=== PATIENT | male | born 1980 | race Hispanic/Latino ===

== ENCOUNTER 2017-04-15 14:46 | Emergency (ER) | payer OTHER ==
[~2017-04-15 14:46] MED LIST: LEVO500T2 PO
[2017-04-15] MEDS ORDERED: HYDROCODONE/ACETAMINOPHEN 10/325 MG TAB ONE (15:14)
[2017-04-15] MEDS ORDERED: DEXAMETHASONE SOD PHOSPHATE 10MG/ML 1ML VIAL ONE (15:18)
[2017-04-15] MEDS ORDERED: KETOROLAC TROMETHAMINE 60 MG/2 ML VIAL ONE (15:18)
== END 2017-04-15 15:37 | disposition home or self-care (01) ==
LOC: EDH 14:46
DX: M10.9 Gout, unspecified (principal)
CPT/HCPCS: 96372 ×2; 99284; J1100; J1885

== ENCOUNTER 2018-05-05 21:52 | Emergency (ER) | payer OTHER ==
[2018-05-05] MEDS ORDERED: DEXAMETHASONE SOD PHOSPHATE 10MG/ML 1ML VIAL ONE (22:05)
[2018-05-05] MEDS ORDERED: GUAIFENESIN-DM 200/20 MG 10 ML ONE (22:07)
[2018-05-05] MEDS ORDERED: BENZONATATE 100 MG CAPSULE PO ONE (22:08)
[2018-05-05] MEDS ORDERED: IBUPROFEN 400 MG TABLET ONE (22:08)
[2018-05-05] MEDS ORDERED: IPRATROPIUM/ALBUTEROL SULFATE 3 ML SOLUTION IH ONE (22:11)
== END 2018-05-06 00:45 | disposition home or self-care (01) ==
LOC: EDH 21:52
DX: J20.9 Acute bronchitis, unspecified (principal); J11.1 Influenza due to unidentified influenza virus with other respiratory manifestations
CPT/HCPCS: 71046; 87804 ×2; 94640; 96372; 99284; J1100

== ENCOUNTER 2019-12-09 06:11 | Emergency (ER) | payer OTHER ==
[2019-12-09] MEDS ORDERED: ACETAMINOPHEN EXTRA STRENGTH 500 MG TABLET ONE (07:07)
[2019-12-09 07:17] LABS: BASOPHILS % (AUTO) 0.3 % (0.0-5.0); EOSINOPHILS % (AUTO) 0.1 % (0.0-8.0); HEMATOCRIT 41.6 % (42-54); LYMPHOCYTES % (AUTO) 5.6 % (21.0-51.0); MEAN CORPUSCULAR HEMOGLOBIN 29.7 pg (27.0-33.0); MEAN CORPUSCULAR HGB CONC 32.9 g/dL (32.0-36.0); MONOCYTES % (AUTO) 5.6 % (3.0-13.0); NEUTROPHILS % (AUTO) 87.8 % (40.0-77.0); PLATELET COUNT (AUTO) 231 K/uL (130-400); RED BLOOD CELL COUNT(AUTO) 4.62 MIL/uL (4.50-6.20); RED CELL DISTRIBUTION WIDTH 13.7 % (11.0-15.5); WHITE BLOOD COUNT (AUTO) 22.3 K/uL (4.8-10.8)
[2019-12-09 07:27] LABS: APPEARANCE,URINE SL CLOUDY (CLEAR); BILIRUBIN,URINE SMALL (NEGATIVE); COLOR,URINE YELLOW (YELLOW); GLUCOSE, URINE (UA) NEGATIVE (NEGATIVE); KETONES,URINE NEGATIVE (NEGATIVE); LEUKOCYTE ESTERASE ,URINE SMALL (NEGATIVE); NITRATE,URINE POSITIVE (NEGATIVE); OCCULT BLOOD,URINE MODERATE (NEGATIVE); PH,URINE 6.5 (5.0-8.0); PROTEIN,URINE TRACE mg/dL (NEGATIVE)
[2019-12-09 07:32] LABS: ALBUMIN 3.2 g/dL (3.5-5.0); BILIRUBIN,TOTAL 1.3 mg/dL (0.2-1.0); POTASSIUM 4.1 mmol/L (3.5-5.1); TOTAL PROTEIN, SERUM 7.7 g/dL (6.0-8.3)
[2019-12-09 07:57] LABS: BACTERIA,URINE Rare /HPF (None Seen); SQUAMOUS EPITHELIAL CELL,UR Rare /HPF (0-2); WBC,URINE 26-50 /HPF (0-1)
[2019-12-09] MEDS ORDERED: CEFTRIAXONE SODIUM 2 GM VIAL ONE (08:13)
[2019-12-09] MEDS ORDERED: SODIUM CHLORIDE 0.9% 100 ML IV ONE (08:16)
== END 2019-12-09 11:31 | disposition home or self-care (01) ==
LOC: EDH 06:11
DX: N10 Acute pyelonephritis (principal); Z20.828 Contact with and (suspected) exposure to other viral communicable diseases; M10.9 Gout, unspecified
CPT/HCPCS: 36415; 71045; 74176; 80053; 81001; 83605; 84484; 85025; 87040; 87077; 87088; 87186; 87426; 87804 ×2; 93005; 96361; 96374; 99285; J0696; U0003

== ENCOUNTER 2020-11-26 07:09 | Emergency (ER) | payer BC, OTHER ==
[~2020-11-26] VITALS: Ht 180.3 cm; Wt 172.4 kg
[2020-11-26 07:34] LABS: BASOPHILS % (AUTO) 0.4 % (0.0-5.0); EOSINOPHILS % (AUTO) 1.8 % (0.0-8.0); HEMATOCRIT 43.7 % (42-54); LYMPHOCYTES % (AUTO) 20.7 % (21.0-51.0); MEAN CORPUSCULAR HEMOGLOBIN 30.5 pg (27.0-33.0); MEAN CORPUSCULAR HGB CONC 33.9 g/dL (32.0-36.0); MEAN CORPUSCULAR VOLUME 89.9 fL (79-99); NEUTROPHILS % (AUTO) 69.8 % (40.0-77.0); PLATELET COUNT (AUTO) 280 K/uL (130-400); RED BLOOD CELL COUNT(AUTO) 4.86 MIL/uL (4.50-6.20); RED CELL DISTRIBUTION WIDTH 13.5 % (11.0-15.5); WHITE BLOOD COUNT (AUTO) 10.8 K/uL (4.8-10.8)
[2020-11-26 07:47] LABS: ALBUMIN 3.5 g/dL (3.5-5.0); BILIRUBIN,TOTAL 0.3 mg/dL (0.2-1.0); MAGNESIUM 1.8 mg/dL (1.80-2.40); TOTAL PROTEIN, SERUM 7.6 g/dL (6.0-8.3)
[2020-11-26 07:51] LABS: B-TYPE NATRIURETIC PEPTIDE 20 pg/mL (0-100)
[2020-11-26 07:58] LABS: AMPHET/METH SCREEN,URINE NEGATIVE (NEGATIVE); BARBITURATE SCREEN, URINE NEGATIVE (NEGATIVE); BENZODIAZEPINES SCREEN,URINE NEGATIVE (NEGATIVE); CANNABINOID SCREEN,URINE NEGATIVE (NEGATIVE); COCAINE SCREEN,URINE NEGATIVE (NEGATIVE); OPIATE SCREEN,URINE NEGATIVE (NEGATIVE); PHENCYCLIDINE SCREEN,URINE NEGATIVE (NEGATIVE)
[2020-11-26] MEDS ORDERED: KETOROLAC 30MG VIAL (30MG/ML) IV ONE (09:30)
[2020-11-26] MEDS ORDERED: ACETAMINOPHEN 500 MG TABLET PO ONE (09:30)
[2020-11-26] MEDS ORDERED: PRED20TA3 PO (10:12)
[2020-11-26] MEDS ORDERED: INDO-15 PO (10:12)
[2020-11-26 11:01] VITALS: BP 118/78
== END 2020-11-26 11:10 | disposition home or self-care (01) ==
LOC: EDH 07:09
DX: R07.89 Other chest pain (principal); M10.9 Gout, unspecified; M25.561 Pain in right knee; E66.01 Morbid (severe) obesity due to excess calories; Z68.43 Body mass index [BMI] 50.0-59.9, adult; Z79.1 Long term (current) use of non-steroidal anti-inflammatories (NSAID)
CPT/HCPCS: 36415; 71045; 80053; 80305; 82550; 83735; 83880; 84484 ×2; 84550; 85025; 93005 ×3; 93971; 96374; 99284; J1885; 96372

== ENCOUNTER 2021-11-21 08:09 | Emergency (ER) | payer BC ==
[~2021-11-21] VITALS: Ht 180.3 cm; Wt 167.8 kg
[~2021-11-21 08:09] MED LIST changes: +INDO-15 PO; +PRED20TA3 PO
[2021-11-21] MEDS ORDERED: ACETAMINOPHEN 500 MG TABLET PO ONE (08:30)
[2021-11-21] MEDS ORDERED: IPRATROPIUM/ALBUTEROL SULFATE 3 ML SOLUTION IH ONE (08:30)
[2021-11-21 08:33] LABS: BASOPHILS % (AUTO) 0.4 % (0.0-5.0); HEMATOCRIT 42.6 % (42-54); LYMPHOCYTES % (AUTO) 5.8 % (21.0-51.0); MEAN CORPUSCULAR HEMOGLOBIN 30.1 pg (27.0-33.0); MEAN CORPUSCULAR HGB CONC 33.3 g/dL (32.0-36.0); MEAN CORPUSCULAR VOLUME 90.3 fL (79-99); MONOCYTES % (AUTO) 5.3 % (3.0-13.0); NEUTROPHILS % (AUTO) 87.2 % (40.0-77.0); PLATELET COUNT (AUTO) 230 K/uL (130-400); RED BLOOD CELL COUNT(AUTO) 4.72 MIL/uL (4.50-6.20); RED CELL DISTRIBUTION WIDTH 13.5 % (11.0-15.5); WHITE BLOOD COUNT (AUTO) 9.4 K/uL (4.8-10.8)
[2021-11-21 08:57] LABS: POTASSIUM 4.1 mmol/L (3.5-5.1)
[2021-11-21 09:00] LABS: ALBUMIN 3.5 g/dL (3.5-5.0); MAGNESIUM 1.6 mg/dL (1.80-2.40); TOTAL PROTEIN, SERUM 7.6 g/dL (6.0-8.3)
[2021-11-21] MEDS ORDERED: SOLU-MEDROL 125MG VIAL IVP ONE (09:00)
[2021-11-21 09:22] LABS: B-TYPE NATRIURETIC PEPTIDE 46 pg/mL (0-100)
[2021-11-21 09:28] LABS: APPEARANCE,URINE CLEAR (CLEAR); BILIRUBIN,URINE NEGATIVE (NEGATIVE); COLOR,URINE LIGHT-YELLOW (YELLOW); GLUCOSE, URINE (UA) NEGATIVE (NEGATIVE); KETONES,URINE NEGATIVE (NEGATIVE); LEUKOCYTE ESTERASE ,URINE NEGATIVE Leu/uL (NEGATIVE); NITRATE,URINE NEGATIVE (NEGATIVE); OCCULT BLOOD,URINE NEGATIVE (NEGATIVE); PH,URINE 7.5 (5.0-8.0); PROTEIN,URINE NEGATIVE (NEGATIVE); UROBILINOGEN,URINE 0.2 mg/dL (0.2-1.0)
[2021-11-21] MEDS ORDERED: HYDROXYZINE 25 MG TABLET PO ONE (10:30)
[2021-11-21] MEDS ORDERED: MAGNESIUM OXIDE 400 MG TABLET PO ONE (10:36)
[2021-11-21 10:50] VITALS: BP 111/66
[2021-11-21] MEDS ORDERED: OSELTAMIVIR PHOSPHATE 75 MG CAP PO SCH (11:00)
[2021-11-21] MEDS ORDERED: MAGNESIUM OXIDE 400 MG TABLET PO SCH (11:00)
[2021-11-21] MEDS ORDERED: CEFTRIAXONE 1G VIAL ONE (11:22)
[2021-11-21] MEDS ORDERED: AMOX-426 PO (11:30)
[2021-11-21] MEDS ORDERED: OSEL75 PO (11:30)
[2021-11-21] MEDS ORDERED: PRED20TA3 PO (11:30)
[2021-11-21] MEDS ORDERED: CEFTRIAXONE 1G VIAL IVP ONE (11:30)
[2021-11-21] MEDS ORDERED: ALBU8.5H8 IH (11:30)
[2021-11-21] MEDS ORDERED: BENZ-39 PO (11:30)
== END 2021-11-21 11:47 | disposition home or self-care (01) ==
LOC: EDH 08:09
DX: J10.00 Influenza due to other identified influenza virus with unspecified type of pneumonia (principal); J98.01 Acute bronchospasm; E83.42 Hypomagnesemia; E66.01 Morbid (severe) obesity due to excess calories; Z68.43 Body mass index [BMI] 50.0-59.9, adult; Z20.822 Contact with and (suspected) exposure to COVID-19; M10.9 Gout, unspecified; Z79.899 Other long term (current) drug therapy
CPT/HCPCS: 99284; 96374; 71045; 87635; 96375; 82550; 83735; 84484; 80053; 83880; 85025; 87040 ×2; 87804 ×2; 83605; 81003; 36415; 93005; 94640; C9803; J2930; J0696

== ENCOUNTER 2022-08-21 02:22 | Emergency (ER) | payer BC ==
[~2022-08-21] VITALS: Ht 180.3 cm; Wt 184.6 kg
[~2022-08-21 02:22] MED LIST changes: +ALBU8.5H8 IH; +AMOX-426 PO; +BENZ-39 PO; +OSEL75 PO
[2022-08-21 02:24] VITALS: BP 147/87
[2022-08-21] MEDS ORDERED: COLC0.6C3 PO (03:27)
[2022-08-21] MEDS ORDERED: INDO50CA97 PO (03:27)
[2022-08-21] MEDS ORDERED: SOLU-MEDROL 125MG VIAL IM ONE (04:00)
[2022-08-21] MEDS ORDERED: KETOROLAC 30MG VIAL (30MG/ML) IM ONE (04:00)
== END 2022-08-21 03:46 | disposition home or self-care (01) ==
LOC: EDH 02:22
DX: M10.9 Gout, unspecified (principal); Z79.52 Long term (current) use of systemic steroids
CPT/HCPCS: 99284; 73610; 96372 ×2; J2930; J1885

== ENCOUNTER 2023-03-27 00:57 | Emergency (ER) | payer BC ==
[~2023-03-27] VITALS: Ht 180.3 cm; Wt 182.8 kg
[~2023-03-27 00:57] MED LIST changes: +COLC0.6C3 PO; +INDO50CA97 PO
[2023-03-27] MEDS ORDERED: KETOROLAC 30MG VIAL (30MG/ML) IV ONE (01:30)
[2023-03-27] MEDS ORDERED: GABAPENTIN 300 MG CAPSULE PO SCH (01:30)
[2023-03-27 01:33] LABS: BASOPHILS # (AUTO) 0.04 K/uL (0.00-0.20); BASOPHILS % (AUTO) 0.4 % (0.0-5.0); EOSINOPHILS # (AUTO) 0.34 K/uL (0.00-0.70); EOSINOPHILS % (AUTO) 3.5 % (0.0-8.0); HEMATOCRIT 40.2 % (42-54); IMMATURE GRANULOCYTE ABSOLUTE 0.02 K/uL (0-1); LYMPHOCYTES # (AUTO) 2.9 K/uL (1.0-4.8); LYMPHOCYTES % (AUTO) 29.9 % (21.0-51.0); MEAN CORPUSCULAR HEMOGLOBIN 30.8 pg (27.0-33.0); MEAN CORPUSCULAR HGB CONC 34.6 g/dL (32.0-36.0); MEAN CORPUSCULAR VOLUME 89.1 fL (79-99); MONOCYTES # (AUTO) 0.7 K/uL (0.1-1.0); MONOCYTES % (AUTO) 6.7 % (3.0-13.0); NEUTROPHILS # (AUTO) 5.7 K/uL (1.8-7.7); NEUTROPHILS % (AUTO) 59.3 % (40.0-77.0); PLATELET COUNT (AUTO) 250 K/uL (130-400); RED BLOOD CELL COUNT(AUTO) 4.51 MIL/uL (4.50-6.20); RED CELL DISTRIBUTION WIDTH 13.2 % (11.0-15.5); WHITE BLOOD COUNT (AUTO) 9.7 K/uL (4.8-10.8)
[2023-03-27 01:47] LABS: ALBUMIN 3.1 g/dL (3.5-5.0); BILIRUBIN,TOTAL 0.2 mg/dL (0.2-1.0); TOTAL PROTEIN, SERUM 6.8 g/dL (6.0-8.3)
[2023-03-27 02:18] LABS: B-TYPE NATRIURETIC PEPTIDE 27 pg/mL (0-100)
[2023-03-27] MEDS ORDERED: IOHEXOL 350 MG/ML 100ML INFUS..BTL IV ONE (03:29)
[2023-03-27 04:58] VITALS: BP 138/70; PULSE 90; RESP 18
[2023-03-27] MEDS ORDERED: GABA300C PO (05:46)
[2023-03-27] MEDS ORDERED: IBUP-1493 PO (05:46)
== END 2023-03-27 06:01 | disposition home or self-care (01) ==
LOC: EDH 00:57
DX: R07.89 Other chest pain (principal)
CPT/HCPCS: 99284; 96374; 71270; 71045; 84484 ×2; 80053; 83880; 85025; 85378; 36415; 93005; J1885; Q9967

== ENCOUNTER 2023-06-02 23:40 | Emergency (ER) | payer BC ==
[~2023-06-02] VITALS: Ht 180.3 cm; Wt 181.9 kg
[~2023-06-02 23:40] MED LIST changes: -ALBU8.5H8 IH; -AMOX-426 PO; -BENZ-39 PO; -COLC0.6C3 PO; +GABA300C PO; +IBUP-1493 PO; -INDO-15 PO; -INDO50CA97 PO; -LEVO500T2 PO; -OSEL75 PO
[2023-06-03 00:37] LABS: CREATININE 0.9 mg/dL (0.5-1.3); POTASSIUM 4.2 mmol/L (3.5-5.1)
[2023-06-03 00:38] LABS: B-TYPE NATRIURETIC PEPTIDE 34 pg/mL (0-100)
[2023-06-03 00:39] LABS: BASOPHILS # (AUTO) 0.06 K/uL (0.00-0.20); BASOPHILS % (AUTO) 0.5 % (0.0-5.0); EOSINOPHILS # (AUTO) 0.26 K/uL (0.00-0.70); EOSINOPHILS % (AUTO) 2.3 % (0.0-8.0); HEMATOCRIT 43.8 % (42-54); IMMATURE GRANULOCYTE ABSOLUTE 0.03 K/uL (0-1); LYMPHOCYTES % (AUTO) 26.1 % (21.0-51.0); MEAN CORPUSCULAR HEMOGLOBIN 30.8 pg (27.0-33.0); MEAN CORPUSCULAR HGB CONC 33.6 g/dL (32.0-36.0); MEAN CORPUSCULAR VOLUME 91.6 fL (79-99); MONOCYTES # (AUTO) 0.7 K/uL (0.1-1.0); MONOCYTES % (AUTO) 6.5 % (3.0-13.0); NEUTROPHILS # (AUTO) 7.3 K/uL (1.8-7.7); NEUTROPHILS % (AUTO) 64.3 % (40.0-77.0); PLATELET COUNT (AUTO) 255 K/uL (130-400); RED BLOOD CELL COUNT(AUTO) 4.78 MIL/uL (4.50-6.20); RED CELL DISTRIBUTION WIDTH 13.2 % (11.0-15.5); WHITE BLOOD COUNT (AUTO) 11.4 K/uL (4.8-10.8)
[2023-06-03 00:41] LABS: SARS-CoV-2, RNA, NAAT NEGATIVE SARS CoV-2 (NEGATIVE)
[2023-06-03 00:43] LABS: INFLUENZA TYPE A Negative For Type A (NEGATIVE); INFLUENZA TYPE B Negative For Type B (NEGATIVE)
[2023-06-03] MEDS: ONDANSETRON 4MG INJ IVP ONE (00:44)
[2023-06-03] MEDS: NITROGLYCERIN 1GM OINT 1 INCH/1GM TD ONE (00:44)
[2023-06-03] MEDS: ASPIRIN 325MG TAB PO ONE (00:44)
[2023-06-03 00:49] LABS: ALBUMIN 3.4 g/dL (3.5-5.0); BILIRUBIN,TOTAL 0.2 mg/dL (0.2-1.0); THYROID STIMULATING HORMONE 1.94 uIU/mL (0.36-3.74); TOTAL PROTEIN, SERUM 7.1 g/dL (6.0-8.3)
[2023-06-03] MEDS ORDERED: IOHEXOL 350 MG/ML 100ML INFUS..BTL IV ONE (01:10)
[2023-06-03] MEDS: ONDANSETRON 4MG INJ ONE (01:35)
[2023-06-03 05:44] VITALS: BP 143/66; PULSE 64; RESP 18; O2SAT 99
== END 2023-06-03 05:42 | disposition home or self-care (01) ==
LOC: EDH 23:40
DX: R07.89 Other chest pain (principal); E66.01 Morbid (severe) obesity due to excess calories; Z20.822 Contact with and (suspected) exposure to COVID-19; Z68.43 Body mass index [BMI] 50.0-59.9, adult; Z79.899 Other long term (current) drug therapy; Z98.890 Other specified postprocedural states
CPT/HCPCS: 99285; 96374; 71045; 87635; 83735; 84484 ×2; 83880; 87804 ×2; 36415; 93005 ×2; 71275; 74177; 80050; J2405; Q9967; 80053; 84443; 85025

== ENCOUNTER 2023-09-19 14:40 | Emergency (ER) | payer BC ==
[~2023-09-19] VITALS: Ht 180.3 cm; Wt 163.3 kg
[2023-09-19] MEDS: HYDROCODONE/ACETAMINOPHEN 5/325 MG TAB PO ONE (16:58)
[2023-09-19] MEDS ORDERED: COLCHICINE 0.6 MG TABLET PO SCH (18:00)
[2023-09-19] MEDS: COLCHICINE 0.6 MG TABLET PO ONE (18:14)
[2023-09-19] MEDS: PREDNISONE 20 MG TABLET PO ONE (18:14)
[2023-09-19] MEDS: IBUPROFEN 600 MG TABLET PO ONE (18:17)
[2023-09-19] MEDS ORDERED: IBUP-2070 PO (18:45)
[2023-09-19] MEDS ORDERED: PRED5TAB PO (18:45)
[2023-09-19 19:01] VITALS: BP 141/72; PULSE 80; RESP 16; O2SAT 98
== END 2023-09-19 19:06 | disposition home or self-care (01) ==
LOC: EDH 14:40
DX: M79.671 Pain in right foot (principal); M10.9 Gout, unspecified; Z79.899 Other long term (current) drug therapy
CPT/HCPCS: 36415; 73630; 84550; 85651

== ENCOUNTER 2023-10-05 19:02 | Emergency (ER) | payer BC ==
[~2023-10-05] VITALS: Ht 180.3 cm; Wt 167.8 kg
[~2023-10-05 19:02] MED LIST changes: +IBUP-2070 PO; +PRED5TAB PO
[2023-10-05 19:22] LABS: BASOPHILS # (AUTO) 0.01 K/uL (0.00-0.20); BASOPHILS % (AUTO) 0.2 % (0.0-5.0); EOSINOPHILS # (AUTO) 0.11 K/uL (0.00-0.70); EOSINOPHILS % (AUTO) 2.3 % (0.0-8.0); HEMATOCRIT 39.9 % (42-54); IMMATURE GRANULOCYTE ABSOLUTE 0.01 K/uL (0-1); LYMPHOCYTES # (AUTO) 1.9 K/uL (1.0-4.8); LYMPHOCYTES % (AUTO) 39.6 % (21.0-51.0); MEAN CORPUSCULAR HEMOGLOBIN 30.4 pg (27.0-33.0); MEAN CORPUSCULAR HGB CONC 34.1 g/dL (32.0-36.0); MEAN CORPUSCULAR VOLUME 89.1 fL (79-99); MONOCYTES # (AUTO) 0.4 K/uL (0.1-1.0); NEUTROPHILS # (AUTO) 2.3 K/uL (1.8-7.7); NEUTROPHILS % (AUTO) 48.7 % (40.0-77.0); PLATELET COUNT (AUTO) 185 K/uL (130-400); RED BLOOD CELL COUNT(AUTO) 4.48 MIL/uL (4.50-6.20); RED CELL DISTRIBUTION WIDTH 13.5 % (11.0-15.5); WHITE BLOOD COUNT (AUTO) 4.8 K/uL (4.8-10.8)
[2023-10-05 19:34] LABS: CREATININE 0.9 mg/dL (0.5-1.3); POTASSIUM 3.8 mmol/L (3.5-5.1)
[2023-10-05 19:59] LABS: RAPID GROUP A STREP negative (NEGATIVE)
[2023-10-05 20:05] LABS: SARS-CoV-2, RNA, NAAT POSITIVE SARS CoV-2 (NEGATIVE)
[2023-10-05 20:06] LABS: B-TYPE NATRIURETIC PEPTIDE 37 pg/mL (0-100)
[2023-10-05 20:09] LABS: INFLUENZA TYPE A Negative For Type A (NEGATIVE); INFLUENZA TYPE B Negative For Type B (NEGATIVE)
[2023-10-05] MEDS: ACETAMINOPHEN 500 MG TABLET PO ONE (21:04)
[2023-10-05] MEDS: KETOROLAC 30MG VIAL (30MG/ML) IM ONE (21:05)
[2023-10-05 21:16] VITALS: BP 130/75; PULSE 75; RESP 16; O2SAT 98
== END 2023-10-05 21:34 | disposition home or self-care (01) ==
LOC: EDH 19:02
DX: U07.1 COVID-19 (principal); Z79.899 Other long term (current) drug therapy
CPT/HCPCS: 99284; 71045; 87635; 82550; 84484 ×2; 80048; 83880; 85025; 87880; 87804 ×2; 36415; 96372; 93005; J1885

== ENCOUNTER 2023-11-04 17:20 | Emergency (ER) | payer BC ==
[~2023-11-04] VITALS: Ht 180.3 cm; Wt 167.8 kg
[2023-11-04 17:41] LABS: BASOPHILS # (AUTO) 0.04 K/uL (0.00-0.20); BASOPHILS % (AUTO) 0.3 % (0.0-5.0); EOSINOPHILS # (AUTO) 0.16 K/uL (0.00-0.70); EOSINOPHILS % (AUTO) 1.4 % (0.0-8.0); HEMATOCRIT 42.4 % (42-54); IMMATURE GRANULOCYTE ABSOLUTE 0.04 K/uL (0-1); LYMPHOCYTES # (AUTO) 1.3 K/uL (1.0-4.8); LYMPHOCYTES % (AUTO) 11.2 % (21.0-51.0); MEAN CORPUSCULAR HEMOGLOBIN 30.8 pg (27.0-33.0); MEAN CORPUSCULAR VOLUME 90.8 fL (79-99); MONOCYTES # (AUTO) 0.5 K/uL (0.1-1.0); MONOCYTES % (AUTO) 4.1 % (3.0-13.0); NEUTROPHILS # (AUTO) 9.7 K/uL (1.8-7.7); NEUTROPHILS % (AUTO) 82.7 % (40.0-77.0); PLATELET COUNT (AUTO) 218 K/uL (130-400); RED BLOOD CELL COUNT(AUTO) 4.67 MIL/uL (4.50-6.20); RED CELL DISTRIBUTION WIDTH 13.5 % (11.0-15.5); WHITE BLOOD COUNT (AUTO) 11.7 K/uL (4.8-10.8)
[2023-11-04 17:52] LABS: RAPID GROUP A STREP negative (NEGATIVE)
[2023-11-04 17:53] LABS: INR <= 0.93 (0.85-1.15); PROTHROMBIN TIME 10.1 SEC (9.6-11.6)
[2023-11-04 17:55] LABS: PARTIAL THROMBOPLASTIN TIME 25.2 SEC (26.3-35.5)
[2023-11-04 18:00] LABS: SARS-CoV-2, RNA, NAAT NEGATIVE SARS CoV-2 (NEGATIVE)
[2023-11-04 18:01] LABS: INFLUENZA TYPE A Negative For Type A (NEGATIVE); INFLUENZA TYPE B Negative For Type B (NEGATIVE)
[2023-11-04 18:02] LABS: B-TYPE NATRIURETIC PEPTIDE 36 pg/mL (0-100)
[2023-11-04] MEDS: guaiFENesin-DM 200/20MG 10ML PO ONE (18:03)
[2023-11-04 18:18] VITALS: PULSE 91
[2023-11-04] MEDS: IpraTROPium/alBUTERol SULFATE 3 ML SOLUTION IH ONE (18:18)
[2023-11-04] MEDS ORDERED: GUAI200T5 PO (18:44)
[2023-11-04] MEDS ORDERED: AZIT250T9 PO (18:44)
[2023-11-04] MEDS: cefTRIAXone 1G VIAL IVPB ONE (18:51)
[2023-11-04] MEDS: AZITHROMYCIN 500MG+NS 250ML 250 ML IVPB SCH (19:00)
[2023-11-04] MEDS: Solu-medROL 40MG VIAL IVP ONE (19:03)
[2023-11-04] MEDS: LORazepam 1 MG TABLET PO SCH (20:45)
[2023-11-04 21:09] VITALS: BP 126/74; PULSE 98; RESP 18; TEMP 98.4; O2SAT 98
== END 2023-11-04 21:08 | disposition home or self-care (01) ==
LOC: EDH 17:20
DX: J18.9 Pneumonia, unspecified organism (principal); R05.9 Cough, unspecified; J98.01 Acute bronchospasm; E66.01 Morbid (severe) obesity due to excess calories; Z79.899 Other long term (current) drug therapy; Z68.43 Body mass index [BMI] 50.0-59.9, adult; Z20.822 Contact with and (suspected) exposure to COVID-19
CPT/HCPCS: 99284; 96365; 96375; 71045; 87635; 82550; 83735; 84484 ×2; 80048; 83880; 85025; 85610; 85730; 87880; 87804 ×2; 36415; 93005; 94640; J0696; J2919; J0456

== ENCOUNTER → 2023-11-12 | Outpatient (CLI) | payer BC ==
[~2023-11-12] MED LIST changes: +AZIT250T9 PO; +GUAI200T5 PO
[2023-11-12 10:19] LABS: BASOPHILS % (AUTO) 0.6 % (0.0-5.0); EOSINOPHILS % (AUTO) 2.8 % (0.0-8.0); HEMATOCRIT 45.3 % (42-54); IMMATURE GRANULOCYTE ABSOLUTE 0.03 K/uL (0-1); LYMPHOCYTES % (AUTO) 29.6 % (21.0-51.0); MEAN CORPUSCULAR HEMOGLOBIN 30.5 pg (27.0-33.0); MEAN CORPUSCULAR HGB CONC 33.1 g/dL (32.0-36.0); MEAN CORPUSCULAR VOLUME 92.3 fL (79-99); MONOCYTES % (AUTO) 4.5 % (3.0-13.0); NEUTROPHILS % (AUTO) 62.1 % (40.0-77.0); PLATELET COUNT (AUTO) 249 K/uL (130-400); RED BLOOD CELL COUNT(AUTO) 4.91 MIL/uL (4.50-6.20); RED CELL DISTRIBUTION WIDTH 13.3 % (11.0-15.5); WHITE BLOOD COUNT (AUTO) 7.8 K/uL (4.8-10.8)
[2023-11-12 10:20] LABS: BASOPHILS # (AUTO) 0.05 K/uL (0.00-0.20); EOSINOPHILS # (AUTO) 0.22 K/uL (0.00-0.70); LYMPHOCYTES # (AUTO) 2.3 K/uL (1.0-4.8); MONOCYTES # (AUTO) 0.4 K/uL (0.1-1.0); NEUTROPHILS # (AUTO) 4.9 K/uL (1.8-7.7)
[2023-11-12 10:23] LABS: HEMOGLOBIN A1C 7.1 % (4.0-6.0)
[2023-11-12 11:03] LABS: ALBUMIN 3.4 g/dL (3.5-5.0); BILIRUBIN,TOTAL 0.3 mg/dL (0.2-1.0); CREATININE 0.9 mg/dL (0.5-1.3); MAGNESIUM 1.7 mg/dL (1.80-2.40); T4 (THYROXINE) 7.5 ug/dL (4.7-13.3); THYROID STIMULATING HORMONE 1.27 uIU/mL (0.36-3.74); TOTAL PROTEIN, SERUM 7.6 g/dL (6.0-8.3)
== END | disposition home or self-care (01) ==
LOC: LAB 09:25
PROVIDERS: ATTEND Surgery
DX: G47.33 Obstructive sleep apnea (adult) (pediatric) (principal); E66.01 Morbid (severe) obesity due to excess calories; K76.0 Fatty (change of) liver, not elsewhere classified; M19.90 Unspecified osteoarthritis, unspecified site
CPT/HCPCS: 36415; 71045; 80053; 80061; 82306; 82607; 82746; 82947; 83036; 83540; 83735; 84207; 84425; 84436; 84443; 84446; 84481; 84590; 84630; 85025; 93005

== ENCOUNTER → 2023-11-12 | Outpatient (CLI) | payer OTHER ==
[~2023-11-12] VITALS: Ht 27.9 cm; Wt 179.5 kg
== END | disposition home or self-care (01) ==
LOC: DTH 09:00
PROVIDERS: ATTEND Surgery
DX: Z71.3 Dietary counseling and surveillance (principal); E66.01 Morbid (severe) obesity due to excess calories; M19.91 Primary osteoarthritis, unspecified site; K76.0 Fatty (change of) liver, not elsewhere classified; G47.33 Obstructive sleep apnea (adult) (pediatric)
CPT/HCPCS: 97802

== ENCOUNTER → 2024-01-15 | Outpatient (CLI) | payer OTHER ==
--- NOTE | 2024-01-15 16:30 | NUR ---
BARIATRIC FOLLOW UP NOTE VISIT 2 OF 3 Wt: 397.4 LBS DOS: 01/15/24 Upon follow up visit, pt presents with a 2 lb wt gain. 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 RD conducted 24 hr food recall. Breakfast: skipped Lunch: noodle soup Dinner: chicken breast S: [address] reviewed simple CHO and complex CHO intake, encouraged pt to decrease soft drink (even sugar free) consumption secondary to carbonation and caffeine, discussed labs, recommended Pt to request labs and set up appointment with PCP, pt verbalized understanding. RD and pt established goals for next month: -balanced snacks -no skipping meals -walking 2x per week Thank you for this visit Addendum: 01/15/24 at [address] Amended: Links added.
== END | disposition home or self-care (01) ==
LOC: DTH 15:54
PROVIDERS: ATTEND Surgery
DX: E66.01 Morbid (severe) obesity due to excess calories (principal); Z71.3 Dietary counseling and surveillance; M19.91 Primary osteoarthritis, unspecified site; K76.0 Fatty (change of) liver, not elsewhere classified; Z68.43 Body mass index [BMI] 50.0-59.9, adult
CPT/HCPCS: 97803

== ENCOUNTER → 2024-05-05 | Outpatient (CLI) | payer OTHER ==
--- NOTE | 2024-05-05 17:07 | NUR ---
BARIATRIC FOLLOW UP NOTE VISIT 3 OF 6 Wt: 235 LBS DOS: 05/05/24 Upon follow up visit, pt presents with a 1 lb wt gain. Pt reported MVI QD from [facility], no protein supplements, no water training, no exercise, long hours at work, schedule varies, may work 18 hrs per day, does not take vit. D daily. RD conducted 24 hr food recall. Breakfast: eggs + beans + water Lunch: chicken+ beans + water Dinner: shrimp cocktail + orange juice RD reviewed simple CHO and complex CHO intake, reviewed labs from Oct., encouraged Pt to encourage fiber intake, discussed ways to increase fiber for the day, discussed different meal that are cooler friendly, encouraged pt to decrease soft drink (even sugar free) consumption secondary to carbonation and caffeine, pt verbalized understanding. RD and pt established goals for next month: -walk for 10 min 2x per week -protein supplements qd -increase fiber intake Thank you for this visit Addendum: 05/05/24 at [address] Amended: Links added.
== END | disposition home or self-care (01) ==
LOC: DTH 16:27
PROVIDERS: ATTEND Surgery
DX: E66.01 Morbid (severe) obesity due to excess calories (principal); M19.91 Primary osteoarthritis, unspecified site; K76.0 Fatty (change of) liver, not elsewhere classified; Z68.43 Body mass index [BMI] 50.0-59.9, adult; Z71.3 Dietary counseling and surveillance
CPT/HCPCS: 97803

== ENCOUNTER → 2024-06-16 | Outpatient (CLI) | payer OTHER ==
--- NOTE | 2024-06-16 17:00 | NUR ---
BARIATRIC FOLLOW UP NOTE VISIT 4 OF 5 Wt: 394 LBS DOS: 06/16/24 Upon follow up visit, pt presents with a 4 lb wt loss. Pt reported feeling surprised towards wt loss, MVI QD, protein supplements, working nights still, is forgetful, has not redone labs, walking 45 min 3-4 x per week, taking snacks for work. RD conducted 24 hr food recall. Breakfast: oatmeal + yogurt + water Lunch: meal prep + green beans + asparagus + water Dinner: [address] [place] [address] reviewed probiotics and prebiotics, reviewed MNT for fiber, reviewed foods high in fiber, encouraged pt to decrease soft drink (even sugar free) consumption secondary to carbonation and caffeine, pt verbalized understanding. RD and pt established goals for next month: -continue MVI QD -walk for 1 hour 3-4 x per week -increased color in maels Thank you for this visit Addendum: 06/16/24 at [address] Amended: Links added.
== END | disposition home or self-care (01) ==
LOC: DTH 14:40
PROVIDERS: ATTEND Surgery
DX: E66.01 Morbid (severe) obesity due to excess calories (principal); M19.91 Primary osteoarthritis, unspecified site; K76.0 Fatty (change of) liver, not elsewhere classified; Z68.43 Body mass index [BMI] 50.0-59.9, adult; Z71.3 Dietary counseling and surveillance
CPT/HCPCS: 97803

== ENCOUNTER 2025-01-19 18:34 | Emergency (ER) | payer BC, OTHER ==
[~2025-01-19] VITALS: Ht 180.3 cm; Wt 172.4 kg
[~2025-01-19 18:34] MED LIST changes: +IBUP-1492 PO; -IBUP-2070 PO
[2025-01-19 18:58] LABS: IMMATURE GRANULOCYTE ABSOLUTE 0.02 K/uL (0-1); NUCLEATED RED BLOOD CELLS 0.0 % (0.0-0.19); PLATELET COUNT (AUTO) 248 K/uL (130-400); RED BLOOD CELL COUNT(AUTO) 5.05 MIL/uL (4.50-6.20); RED CELL DISTRIBUTION WIDTH 12.9 % (11.0-15.5); WHITE BLOOD COUNT (AUTO) 8.9 K/uL (4.8-10.8)
--- NOTE | 2025-01-19 19:02 | EKG ---
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
[2025-01-19 19:09] LABS: CREATININE 0.9 mg/dL (0.5-1.3); GLOMERULAR FILTR. RATE CALC 108.0 mL/min (>90); GLUCOSE,RANDOM 351.0 mg/dL (70-105); SODIUM SERUM 131.0 mmol/L (136-145); UREA NITROGEN, BLOOD 12.0 mg/dL (7-18)
[2025-01-19 19:13] LABS: ASPARTATE AMINOTRANSFERASE 13.0 U/L (10-37); TOTAL PROTEIN, SERUM 7.3 g/dL (6.0-8.3)
[2025-01-19] MEDS: 0.9%NACL 1000ML 1,000 ML IV ONE (19:53)
--- NOTE | 2025-01-19 20:06 | ERN ---
ED Note History of Present Illness Stated Complaint: BLOODY STOOLS Chief Complaint: Bloody Stool Time Seen by MD: 18:36 Time Seen by Midlevel: 18:36 Dictation: The patient is a 45-year-old male with a history of gout who presents to the emergency department with complaints of bight bloody stools for two weeks. Patient reports some nausea but no vomiting. Reports left upper abdominal pain. Reports occasional constipation. Reports rectal pain. Allergies: Coded Allergies: No Known Drug Allergies (Unverified Allergy, Unknown, 11/18/16) Home Meds Active Scripts Docusate Sodium (Colace) 100 Mg Capsule, 1 CAP PO BID for 30 Days, #60 CAP 0 [facility] Metformin HCl (Metformin HCl) 500 Mg Tablet, 1 TAB PO BID for 30 Days, #60 TAB 0 [facility] 01/19/25 Hydrocortisone Acetate (Hydrocortisone Acetate) 25 Mg Supp.rect, 1 SUPP PA BID for 14 Days, #28 SUPP 0 [facility] 01/19/25 Azithromycin (Azithromycin) 250 Mg Tablet, 250 MG PO DAILY, #5 TAB Prov:EDEN HOPSON MD 11/04/23 Guaifenesin (Guaifenesin) 200 Mg Tablet, 200 MG PO Q4HPRN for COUGH, #60 TAB Prov:EDEN HOPSON MD 11/04/23 Ibuprofen (Ibuprofen) 600 Mg Tablet, 600 MG PO q8 hours for 5 Days, #15 TAB 0 Refills Prov:KENRICK BLANCHARD [facility] 09/19/23 Prednisone (Prednisone) 5 Mg Tablet, 30 MG PO DAILY, #4 TAB 0 Refills Prov:KENRICK BLANCHARD [facility] 09/19/23 Ibuprofen (Motrin/Advil) 800 Mg Tab, 800 MG PO TID, #30 TAB Prov:STEVIE MARTINEZ MD 03/27/23 Gabapentin (Neurontin) 300 Mg Capsule, 300 MG PO TID, #60 CAP Prov:STEVIE MARTINEZ MD 03/27/23 Prednisone (Prednisone) 20 Mg Tablet, 1 TAB PO AD for 6 Days, #14 TAB 0 Refills TAKE 1 TAB BY MOUTH THREE TIMES PER DAY X3 DAYS, THEN TAKE 1 TAB BY MOUTH TWICE A DAY X2 DAYS, THEN TAKE 1 TAB BY MOUTH ONCE A DAY X1 DAY. Prov:RICHARD LOPEZ MD 11/26/20 Past Medical History Past Medical History: No Pertinent History Additional Past Medical Hx: GOUT Surgical History: None Surgical History Other: RT KNEE last year Family History: HTN Social History: Negative, Lives with family RN Note Reviewed/Agreed w/PFSH: Yes Review of System Dictation Constitutional: Negative for fever,chills, and weight loss Eyes: Negative for injury, pain,redness, and discharge ENT: Negative for injury,pain or swelling Cardiovascular: Negative for chest pain, palpitations, and edema Respiratory: Negative for shortness of breath, cough, and wheezing, Abdomen/GI: Negative for nausea, vomiting, diarrhea positive for abdominal pain, constipation, bloody stools Back: Negative for injury and pain : Negative for injury, bleeding and discharge MS/Extremity: Negative for injury and deformity Skin: Negative for rash, and discoloration Neuro: Negative for headache, weakness, numbness, tingling, and seizure Psych: Negative for suicide ideation, homicidal ideation, and hallucinations Initial Vital Sign VS Vital Signs Date Time Temp Pulse Resp B/P (MAP) Pulse Ox O2 Delivery O2 Flow Rate FiO2 01/19/25 18:36 97.3 86 18 173/90 98 Room Air 0 01/19/25 19:19 21 Physical Exam Dictation Vital Signs reviewed General Appearance: Alert, oriented x 3, no acute distress, well developed, nourished. Head and Face: non-traumatic. Eyes: PERRL, pink conjunctivas, eyelid no trauma, anterior chamber with arcus senilis. Ears: Pinnas intact and no signs of trauma or erythema ear canals clear and no discharge TM no erythema Nose: No discharge, no bleeding. Oropharynx: Mouth normal, tongue pink. pharynx clear,no erythema, tonsils no exudates, no abscesses noted, mucous membrane moist Neck: Supple, non-tender, no thyromegaly, no masses, no JVD, no bruits Breast:Deferred Chest:No tenderness, no crepitus, no paradoxical movement, no retractions Lungs:Clear, well-ventilated, symmetric, no rales, no wheezing, no rhonchi, no stridor, good breath sounds bilaterally Heart: Regular rate, regular rhythm, no murmur, no gallops Vascular: no peripheral edema, Abdomen: Soft, positive bowel sounds, nondistended, no guarding, nontender, no rebound, no masses no hepatomegaly, no splenomegaly, no Molina's sign, no hernias. Rectal: hemorrhoid to 6 o clock, no significant bleeding. Genital: Deferred Neurological: Normal speech, motor function intact, sensory function intact Musculoskeletal: Neck nontender, full range of motion, back nontender, full range of motion, Extremities: nontender, full range of motion Skin: Color pink, dry, no turgor, no rash, no lacerations, no abrasions, no contusions. Lymphatic: Deferred Results (Laboratory/Radiology) Laboratory/Radiology Laboratory Tests Test 01/19/25 18:50 01/19/25 19:48 01/19/25 19:49 01/19/25 21:33 White Blood Count 8.9 K/uL (4.8-10.8) Red Blood Count 5.05 MIL/uL (4.50-6.20) Hemoglobin 15.3 g/dL (14.0-18.0) Hematocrit 45.4 % (42-54) Mean Corpuscular Volume 89.9 fL (79-99) Mean Corpuscular Hemoglobin 30.3 pg (27.0-33.0) Mean Corpuscular Hemoglobin Concent 33.7 g/dL (32.0-36.0) Red Cell Distribution Width 12.9 % (11.0-15.5) Platelet Count 248 K/uL (130-400) Mean Platelet Volume 11.5 fL (7.5-10.5) H Immature Granulocyte % (Auto) 0.2 % (0-1) Neutrophils (%) (Auto) 61.1 % (40.0-77.0) Lymphocytes (%) (Auto) 29.6 % (21.0-51.0) Monocytes (%) (Auto) 6.3 % (3.0-13.0) Eosinophils (%) (Auto) 2.4 % (0.0-8.0) Basophils (%) (Auto) 0.4 % (0.0-5.0) Neutrophils # (Auto) 5.4 K/uL (1.8-7.7) Lymphocytes # (Auto) 2.6 K/uL (1.0-4.8) Monocytes # (Auto) 0.6 K/uL (0.1-1.0) Eosinophils # (Auto) 0.21 K/uL (0.00-0.70) Basophils # (Auto) 0.04 K/uL (0.00-0.20) Absolute Immature Granulocyte (auto 0.02 K/uL (0-1) Nucleated Red Blood Cells 0.0 % (0.0-0.19) Sodium Level 131 mmol/L (136-145) L Potassium Level 3.8 mmol/L (3.5-5.1) Chloride Level 98 mmol/L (101-111) L Carbon Dioxide Level 28 mmol/L (21-32) Blood Urea Nitrogen 12 mg/dL (7-18) Creatinine 0.9 mg/dL (0.5-1.3) Glomerular Filtration Rate Calc 108 mL/min (>90) Random Glucose 351 mg/dL (70-105) H Total Calcium 9.0 mg/dL (8.5-10.1) Total Bilirubin 0.4 mg/dL (0.2-1.0) Direct Bilirubin 0.1 mg/dL (0.0-0.3) Aspartate Amino Transf (AST/SGOT) 13 U/L (10-37) Alanine Aminotransferase (ALT/SGPT) 27 U/L (12-78) Alkaline Phosphatase 102 U/L (50-136) Troponin I High Sensitivity 11 ng/L (4-75) Total Protein 7.3 g/dL (6.0-8.3) Albumin 3.4 g/dL (3.5-5.0) L Lipase 53 U/L (16-77) Urine Color LIGHT-YELLOW (YELLOW) Urine Appearance CLEAR (CLEAR) Urine pH 5.5 (5.0-8.0) Urine Specific [place] 1.030 (1.001-1.031) Urine Protein NEGATIVE mg/dL (NEGATIVE) Urine Glucose (UA) >=1000 mg/dL (NEGATIVE) H Urine Ketones NEGATIVE mg/dL (NEGATIVE) Urine Occult Blood NEGATIVE (NEGATIVE) Urine Nitrate NEGATIVE (NEGATIVE) Urine Bilirubin NEGATIVE mg/dL (NEGATIVE) Urine Urobilinogen 0.2 mg/dL (0.2-1.0) Urine Leukocyte Esterase NEGATIVE Brock/uL Urine RBC 0-1 /HPF (0-1) Urine WBC 0-1 /HPF (0-1) Urine Squamous Epithelial Cells Rare /HPF (0-2) Urine Bacteria Rare /HPF (None Seen) Stool Occult Blood POSITIVE (NEGATIVE) H Whole Blood Glucose 265 MG/DL (70-110) H Labs Reviewed?: Yes EKG: (+) rhythm (Sinus rhythm) EKG Comment: Date:01/19/2025 Time:1854 Ventricular rate:83 PA interval:140 QRS duration:98 QT/QTc:364/427 EKG interpretation: Sinus rhythm Reviewed by ED Attending no STEMI ED Course ED Course Orders Procedure Category Date Status Time Cbc With Differential LAB 01/19/25 Complete 18:39 Urinalysis Profile LAB 01/19/25 Complete 18:39 Occult Blood Stool LAB 01/19/25 Complete Single Only 18:39 0.9%Nacl 1000ml (Ns PHA 01/19/25 Complete 1000ml) 19:00 Ondansetron 4mg Inj PHA 01/19/25 Complete (Zofran 4mg Inj) 19:00 Pantoprazole 40mg Inj PHA 01/19/25 Complete (Protonix 40mg Inj 19:00 Lipase LAB 01/19/25 Complete 18:39 Basic Metabolic Panel LAB 01/19/25 Complete 18:39 Hepatic Function Panel LAB 01/19/25 Complete 18:39 Troponin I High LAB 01/19/25 Complete Sensitivity 18:39 12 Lead Ekg Tracing- EKG 01/19/25 Complete Technical 18:39 Insulin Regular, PHA 01/19/25 Complete Human 3ml (Humulin R 20:00 Bedside Glucose CPOE 01/19/25 Transmitted Fingerstick 20:53 Current Medications Medications (Trade) Dose Ordered Sig/Cornelio Route PRN Reason Start Time Stop Time Status Last Admin Dose Admin Insulin Human Regular (humuLIN R 100 UNIT/ML 3ML) 5 unit ONCE ONCE SQ 01/19/25 20:00 01/19/25 20:01 DC 01/19/25 20:57 Ondansetron HCl (zoFRAN 4MG INJ) 4 mg ONCE ONCE IVP 01/19/25 19:00 01/19/25 19:01 DC 01/19/25 19:53 Pantoprazole Sodium (PROTonix 40MG INJ) 40 mg ONCE ONCE IVP 01/19/25 19:00 01/19/25 19:01 DC 01/19/25 19:53 Sodium Chloride 1,000 ml @ 0 mls/hr ONCE ONCE IV 01/19/25 19:00 01/19/25 19:01 DC 01/19/25 19:53 Vital Signs Date Time Temp Pulse Resp B/P (MAP) Pulse Ox O2 Delivery O2 Flow Rate FiO2 01/19/25 21:58 98.2 82 18 119/70 98 Room Air* 0 21 01/19/25 19:19 86 18 126/81 98 Room Air* 0 21 01/19/25 18:36 97.3 86 18 173/90 98 Room Air 0 Medical Decision Making MDM The patient is a 45-year-old male with a history of gout who presents to the emergency department with complaints of bight bloody stools for two weeks. Patient reports some nausea but no vomiting. Reports left upper abdominal pain. Reports occasional constipation. Reports rectal pain CBC showed no leukocytosis, no anemia, chemistry showed mild hyponatremia, hypochloremia, blood glucose of 351, which improved after medication and fluids. negative lipase, negative troponin, normal liver function pain urinalysis negative for leukocyte esterase, nitrites. Fecal occult was positive but patient on physical exam has a hemorrhage which could be the cause of the bleeding. Patient otherwise with a completely normal hemoglobin, no tachycardia. Patient's abdomen is soft and nontender. Patient with no vomiting, stable vital signs. Patient will be discharged to follow up with PCP. Differential diagnosis: GI bleed, dehydration, hemorrhoids, anemia Need for hospitalization: Patient does not meet criteria for hospitalization. There are no social concerns with this patient. DX & DISP Disposition: Discharge Departure Impression: Primary Impression: Hemorrhoids Additional Impression: Diabetes mellitus, new onset Condition: Stable Scripts Docusate Sodium (Colace) 100 Mg Capsule 1 CAP PO BID for 30 Days, #60 CAP 0 Refills Prov: LAKIA CANSECO [employer] 01/19/25 Metformin HCl (Metformin HCl) 500 Mg Tablet 1 TAB PO BID for 30 Days, #60 TAB 0 Refills Prov: LAKIA CANSECO 01/19/25 Hydrocortisone Acetate (Hydrocortisone Acetate) 25 Mg Supp.rect 1 SUPP PA BID for 14 Days, #28 SUPP 0 Refills Prov: LAKIA CANSECO 01/19/25 Additional Instructions: You have a hemorrhoid which can be causing your rectal pain and blood in stools. Your labs also showed you have diabetes. Please take medications as prescribed.Follow up [facility] pcp for further evaluation of your diabetes. Follow up with PCP in 1-2 days. If anything worsens please return to ER FOLLOW-UP WITH PRIMARY CARE PROVIDER IN 1 TO 2 DAYS. TAKE MEDICATIONS DIRECTED HERE IN THE EMERGENCY ROOM. OKAY TO CONTINUE HOME MEDICATIONS UNLESS OTHERWISE DISCUSSED DURING YOUR VISIT IN THE EMERGENCY ROOM TODAY. RETURN TO YOUR NEAREST EMERGENCY ROOM IF SYMPTOMS WORSEN OR IF THERE IS NO IMPROVEMENT. CALL 911 IF YOU NEED IMMEDIATE ASSISTANCE. TAKE TYLENOL [id number] NEEDED AND IF NO CONTRAINDICATIONS ARE PRESENT. INCREASE ORAL HYDRATION. A WOUND CULTURE OR URINE CULTURE WAS ORDERED HERE IN THE EMERGENCY ROOM DEPARTMENT PLEASE FOLLOW-UP WITH PRIMARY CARE PROVIDER AND ADVISE THEM TO GET REPEAT PORTS FROM OUR FACILITY. IF YOU HAD ANY MARGARET WRAP/SPLINTS THAT WERE APPLIED HERE, PLEASE DO NOT REMOVE THEM UNTIL YOU SEE YOUR PRIMARY CARE OR SPECIALTY. Referrals: LALY YAP (PCP) Time of Disposition: 21:43 I have reviewed the case, and I agree with, Diagnosis and Plan LAKIA CANSECO [employer] Jan 19, 2025 20:06
[2025-01-19 20:08] LABS: ADD UA MICROSCOPIC YES; APPEARANCE,URINE CLEAR (CLEAR); GLUCOSE, URINE (UA) >=1000 mg/dL (NEGATIVE); LEUKOCYTE ESTERASE ,URINE NEGATIVE Leu/uL (NEGATIVE); NITRATE,URINE NEGATIVE (NEGATIVE); OCCULT BLOOD,URINE NEGATIVE (NEGATIVE)
[2025-01-19 20:21] LABS: SQUAMOUS EPITHELIAL CELL,UR Rare /HPF (0-2)
[2025-01-19] MEDS ORDERED: METF-444 PO (21:47)
[2025-01-19] MEDS ORDERED: DOCU-116 PO (21:47)
[2025-01-19] MEDS ORDERED: HYDR25SU7 PR (21:47)
[2025-01-19 21:58] VITALS: BP 119/70; PULSE 82; RESP 18; TEMP 98.2; O2SAT 98
== END 2025-01-19 22:09 | disposition home or self-care (01) ==
LOC: EDH 18:34
DX: K64.9 Unspecified hemorrhoids (principal); K59.00 Constipation, unspecified; E11.9 Type 2 diabetes mellitus without complications; M10.9 Gout, unspecified; Z79.899 Other long term (current) drug therapy; Z79.84 Long term (current) use of oral hypoglycemic drugs; Z79.52 Long term (current) use of systemic steroids; Z79.1 Long term (current) use of non-steroidal anti-inflammatories (NSAID)
CPT/HCPCS: 99284; 96374; 96375; 82270; 80076; 84484; 80048; 83690; 85025; 82948; 81001; 36415; 93005; 96372; J1815; J7030; J2405; J2470